=== PATIENT | male | born 1965 | race African-American/Black ===

== ENCOUNTER 2021-07-23 09:34 | Emergency (ER) | payer MEDICAID ==
[~2021-07-23] VITALS: Ht 182.9 cm; Wt 93.0 kg
[2021-07-23 09:43] VITALS: BP 169/112
[2021-07-23] MEDS ORDERED: KETOROLAC 30MG/ML VIAL IV STA (10:20)
[2021-07-23] MEDS ORDERED: ONDANSETRON HCL 4MG/2ML INJ IV STA (10:20)
[2021-07-23] MEDS ORDERED: SODIUM CHLORIDE 0.9% 1,000 ML IV ONE (10:30)
[2021-07-23 10:57] LABS: BASOPHILS % 0.8 % (0.0-2.0); EOSINOPHILS % 0.1 % (0.0-5.0); HEMATOCRIT. 51.3 % (42.0-52.0); HEMOGLOBIN. 17.3 g/dL (14.0-18.0); LYMPHOCYTES % 19.3 % (20.0-50.0); MEAN CORPUSCULAR HEMOGLOBIN 31.8 pg (28.0-32.0); MEAN CORPUSCULAR VOLUME 94.3 fL (80.0-94.0); MEAN PLATELET VOLUME 8.9 fl (7.4-10.4); MONOCYTES % 7.9 % (2.0-8.0); NEUTROPHILS % 71.9 % (40.0-76.0); PLATELET 262 x1000/uL (130-400); RED BLOOD CELL COUNT 5.43 mill/uL (4.7-6.1); RED CELL DISTRIBUTION WIDTH 14.2 % (11.6-14.6)
[2021-07-23 11:05] LABS: CHLORIDE 98 mEq/L (98-107)
[2021-07-23] MEDS ORDERED: ONDA4TAB5 PO (12:20)
[2021-07-23] MEDS ORDERED: TOPUD PO (12:21)
== END 2021-07-23 12:39 | disposition home or self-care (01) ==
LOC: ER 09:34
DX: K52.9 Noninfective gastroenteritis and colitis, unspecified (principal); F12.10 Cannabis abuse, uncomplicated; Z98.890 Other specified postprocedural states; Z96.651 Presence of right artificial knee joint; Z96.649 Presence of unspecified artificial hip joint; Z79.899 Other long term (current) drug therapy
CPT/HCPCS: 36415; 80053; 83690; 85025; 93005; 99284; J7030; Z7610